=== PATIENT | male | born 1945 | race Caucasian/White ===

== ENCOUNTER 2024-07-30 15:17 | Emergency (ER) | payer MEDICARE, OTHER, SELFPAY ==
[2024-07-30] VITALS (9 sets, daily range): BP systolic 122–153; BP diastolic 53–86; PULSE 73–77; RESP 14–22; TEMP 36.6; O2SAT 96–99; BMI 23.7
--- NOTE | 2024-07-30 15:30 | DI.RAD.S_ITS ---
PROCEDURE: XR CHEST 1V INDICATIONS: chest pain TECHNIQUE: One view of the chest was acquired. COMPARISON: None. FINDINGS: Surgical changes and devices: Left shoulder arthroplasty Lungs and pleura: Low lung volumes. Mildly prominent interstitium. Mediastinum: Mild cardiomegaly Bones and chest wall: Degenerative changes IMPRESSION: Limited single view radiograph with low lung volumes. Mildly prominent interstitium could represent atypical infection versus edema versus background fibrosis. Consider future imaging surveillance to assess for resolution. Dictated by: Min Holloway M.D. on 07/30/2024 at 16:24 Approved by: Min Holloway M.D. on 07/30/2024 at 16:25
--- NOTE | 2024-07-30 15:34 | EKG_ITS ---
[place] [id number] [address] [place] [id number] Test Date: 2024-07-30 Pat Name: Matthew Zavala Department: [facility] Room: Gender: Male Mail Courier: BROOKLYNN : 1945 Requested By: Order Number: [id number] Reading MD: Christo Mccauley Measurements Intervals [place] Rate: 76 P: 73 [place]: 258 QRS: -84 QRSD: 158 T: 91 QT: 440 QTc: 495 Interpretive Statements Atrial-sensed ventricular-paced rhythm with prolonged AV conduction with occasional premature ventricular complexes Electronically Signed On 07-31-2024 20:14:07 PDT by Christo Mccauley
[2024-07-30 15:45] LABS: Add Manual Diff / Slide Review NO; Basophils Absolute Auto 200 /uL (0-100); Basophils Percent Auto 1.5 % (0-2); Eosinophils Absolute Auto 200 /uL (0-450); Eosinophils Percent Auto 1.9 % (2-4); Hematocrit 31.5 % (41-53); Hemoglobin 9.8 g/dL (13.5-17.5); Lymphocytes Absolute Auto 1800 /uL (1100-4500); Lymphocytes Percent Auto 18.3 % (25-40); Mean Corpuscular Hemoglobin 21.9 PG (26-34); Mean Corpuscular Volume 70.7 fL (80-100); Monocytes Absolute Auto 900 /uL (0-900); Monocytes Percent Auto 9.7 % (3-14); Neutrophils Absolute Auto 6700 /uL (1500-7000); Neutrophils Percent Auto 68.6 % (50-75); Platelet Count 245 X10^3/uL (150-400); Red Blood Cell Count 4.46 X10^6/uL (4.5-5.9); Red Cell Distribution Width 18.7 % (11.6-14.8); White Blood Cell Count 9.8 X10^3/uL (4.5-11.0)
[2024-07-30 15:46] LABS: Prothrombin Time 11.6 SECONDS (9.4-12.5)
[2024-07-30 15:48] LABS: PTT Partial Thromboplastin Tim 33 SECONDS (25.1-36.5)
[2024-07-30 15:51] LABS: Alanine Aminotransferase 19 IU/L (<50); Albumin 3.8 g/dL (3.5-5.0); Albumin Globulin Ratio 1.4 (1.0-2.8); Alkaline Phosphatase 92 U/L (38-126); Aspartate Aminotransferase 22 IU/L (17-59); BUN Creatinine Ratio 26.6 (6-22); Bilirubin Total 0.5 mg/dL (0.2-1.3); Blood Urea Nitrogen 29 mg/dL (9-20); Calcium 9.5 mg/dL (8.4-10.2); Carbon Dioxide 24 mmol/L (22-32); Chloride 106 mmol/L (98-107); Creatine Kinase 87 U/L (55-170); Estimated Glomerular Filt Rate > 60 mL/min (>60); Globulin 2.8 g/dL (1.7-4.1); Glucose 130 mg/dL (80-110); HEMOLYSIS < 15 (0-50); Lipase 145 U/L (23-300); Potassium 4.2 mmol/L (3.4-5.1); Sodium 139 mmol/L (137-145); Total Protein 6.6 g/dL (6.3-8.2)
[2024-07-30 16:02] LABS: NT-proBNP (BNP-Adult 18+) 1110 pg/mL (<450); Troponin I 0.013 ng/mL (0.01-0.034)
--- NOTE | 2024-07-30 17:21 | ED.SYNCOPE ---
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 He had no chest pain or palpitations he has been doing very well since his complicated admission. He reports that he was intubated for respiratory failure for pneumonia looks like COPD as well. He reports all the symptoms have completely resolved he was been doing really well since he has been discharged from the hospital. He had no numbness or tingling. He did not pass out he has no headache no nausea or vomiting. No significant lower extremity edema. He was treated for osteomyelitis of his foot and he says that is doing really well as well. He has no other symptoms Related Data Home Medications Medication Instructions Recorded Confirmed apixaban 5 mg tablet 5 mg PO BID 07/30/24 07/30/24 Allergies Allergy/AdvReac Type Severity Reaction Status Date / Time morphine Allergy Hives Verified 07/30/24 15:30 Patient History Social History Smoking Status: Never smoker Smoking Status: Never smoker alcohol intake frequency: holidays/special occasions only Substance Use Type: marijuana Exam Initial Vital Signs Initial Vital Signs: Vital Signs Temperature 98 F 07/30/24 15:27 Pulse Rate 75 07/30/24 15:27 Respiratory Rate 18 07/30/24 15:27 Blood Pressure 138/67 07/30/24 15:27 Pulse Oximetry 96 07/30/24 15:27 Oxygen Delivery Method Room Air 07/30/24 15:27 GENERAL: Alert pleasant 78-year-old male and in no acute distress. HEENT: Head atraumatic,EOMI, pupils reactive, face symmetric, moist mucous membranes CARDIOVASCULAR: Regular rate and rhythm without murmurs, rubs or gallops. RESPIRATORY: Breath sounds equal bilaterally, no wheezes rales or rhonchi. ABDOMEN: Soft, nontender. Normoactive bowel sounds all 4 quadrants. No guarding or rebound. EXTREMITIES: Normal range of motion, no clubbing or edema. Scar noted on right leg but definitely no edema Neurovascularly intact NEUROLOGICAL: Alert and oriented x4.Normal gait and speech. Cranial nerves II through XII grossly intact. SKIN: Warm, dry, no laceration, no petechiae, no rashes or lesions. Course Orders Ordered: ED Orders 07/30/24 15:26 Complete Blood Count AUTO DIFF Stat Comprehensive Metabolic Panel Stat Lipase Stat Magnesium Stat NT-proBNP (BNP-Adult 18+) Stat PTT Partial Thromboplastin Stephen Stat Prothrombin Time INR Stat Troponin & CK Cardiac Panel Stat 07/30/24 15:30 XR chest 1V Stat EKG-12 Lead Stat 07/30/24 17:37 EKG-12 Lead Stat 07/30/24 17:40 Troponin I Stat Vital Signs Vital signs: Vital Signs - 8 hr 07/30/24 15:27 07/30/24 15:40 07/30/24 15:42 Temperature 98 F Pulse Rate 75 73 75 Respiratory Rate 18 21 14 Blood Pressure 138/67 Pulse Oximetry 96 99 98 Oxygen Delivery Method Room Air 07/30/24 15:42 07/30/24 16:00 07/30/24 16:00 Temperature Pulse Rate 75 Respiratory Rate 21 Blood Pressure 136/53 L 150/65 H Pulse Oximetry 99 Oxygen Delivery Method 07/30/24 16:30 07/30/24 16:30 07/30/24 17:00 Temperature Pulse Rate 77 Respiratory Rate 20 Blood Pressure 153/70 H 146/69 H Pulse Oximetry 99 Oxygen Delivery Method 07/30/24 17:00 07/30/24 17:30 07/30/24 17:30 Temperature Pulse Rate 75 75 Respiratory Rate 21 22 Blood Pressure 143/63 H Pulse Oximetry 99 98 Oxygen Delivery Method MDM - Syncope Lab Data 07/30/24 15:26 07/30/24 15:26 Labs: Lab Results 07/30/24 07/30/24 Range/Units 15:26 17:40 WBC 9.8 (4.5-11.0) X10^3/uL RBC 4.46 L (4.5-5.9) X10^6/uL Hgb 9.8 L (13.5-17.5) g/dL Hct 31.5 L (41-53) % MCV 70.7 L (80-100) fL MCH 21.9 L (26-34) PG MCHC 31.0 (30-36) % RDW 18.7 H (11.6-14.8) % Plt Count 245 (150-400) X10^3/uL Neut % (Auto) 68.6 (50-75) % Lymph % (Auto) 18.3 L (25-40) % Logan % (Auto) 9.7 (3-14) % Eos % (Auto) 1.9 L (2-4) % Baso % (Auto) 1.5 (0-2) % Neut # (Auto) 6700 (0993-9598) /uL Lymph # (Auto) 1800 (0408-8697) /uL Logan # (Auto) 900 (0-900) /uL Eos # (Auto) 200 (0-450) /uL Baso # (Auto) 200 H (0-100) /uL PT 11.6 (9.4-12.5) SECONDS INR 1.0 (0.9-1.3) APTT 33 (25.1-36.5) SECONDS Sodium 139 (137-145) mmol/L Potassium 4.2 (3.4-5.1) mmol/L Chloride 106 (98-107) mmol/L Carbon Dioxide 24 (22-32) mmol/L BUN 29 H (9-20) mg/dL Creatinine 1.09 (0.66-1.25) mg/dL Estimated GFR > 60 (>60) mL/min BUN/Creatinine Ratio 26.6 H (6-22) Glucose 130 H (80-110) mg/dL Calcium 9.5 (8.4-10.2) mg/dL Magnesium 2.0 (1.6-2.3) mg/dL Total Bilirubin 0.5 (0.2-1.3) mg/dL AST 22 (17-59) IU/L ALT 19 (<50) IU/L Alkaline Phosphatase 92 (38-126) U/L Total Creatine Kinase 87 (55-170) U/L Troponin I 0.013 0.016 (0.01-0.034) ng/mL NT-Pro-B Natriuret Pep 1110 H (<450) pg/mL Total Protein 6.6 (6.3-8.2) g/dL Albumin 3.8 (3.5-5.0) g/dL Globulin 2.8 (1.7-4.1) g/dL Albumin/Globulin Ratio 1.4 (1.0-2.8) Lipase 145 (23-300) U/L Imaging Data Chest x-ray: Radiologist's Impression: PROCEDURE: XR CHEST 1V INDICATIONS: chest pain TECHNIQUE: One view of the chest was acquired. COMPARISON: None. FINDINGS: Surgical changes and devices: Left shoulder arthroplasty Lungs and pleura: Low lung volumes. Mildly prominent interstitium. Mediastinum: Mild cardiomegaly Bones and chest wall: Degenerative changes IMPRESSION: Limited single view radiograph with low lung volumes. Mildly prominent interstitium could represent atypical infection versus edema versus background fibrosis. Consider future imaging surveillance to assess for resolution. Dictated by: Min Holloway M.D. on 07/30/2024 at 16:24 ECG Data Attestation: I personally reviewed and interpreted this ECG as follows: Prior ECG tracings: not available for review Interpretation: Paced rhythm rate 76 [place] interval 258 QRS 158 QTC 495 no Sgarbossa criteria EKG 2. Persistently paced rhythm rate 75 no ischemia MDM Narrative Medical decision making narrative: MDM CC: Diaphoresis Complicating co-morbidities: Renal transplant secondary to COPD CHF diabetes osteomyelitis pacemaker Medical records reviewed: [facility] records have been reviewed Differential considered: Pacemaker abnormality, cardiac acute coronary syndrome TIA vasovagal electrolyte abnormality Exam documented above, pertinent findings include: No significant lower extremity edema neurologically intact appears well no respiratory distress Lab Test results independently reviewed as above. Pertinent findings: BNP 1100 troponin negative x2 CBC: WBC 9.8 hemoglobin 9.8 hematocrit 31.5 platelets 245 INR 1.0 PTT 33 CMP: Sodium 139 potassium 4.2 chloride 106 carbon dioxide 24 BUN 29 creatinine 1.0 Independently reviewed EKG as above paced rhythm x2 Imaging studies independently reviewed: No acute cardiopulmonary process Consultations: None Treatments: None Re-evaluations: Pacemaker was interrogated by [employer] does not appear that he has had any significant ativity, last activity was ventricular rhythm nonsustained on 06/27/2024 Discussion: Patient is 78-year-old male with very complicated medical history presenting today with a diaphoretic episode and near syncopal episode. He did not pass out he has no symptoms. He is 2- troponins. Pacemaker has been evaluated and no significant activity noted. Blood work is overall reassuring. He has no focal deficits no headache. Vitals have been stable. No evidence of infection or signs suggestive infection. At this time I recommend he follow up with primary care. Discharge Plan Departure Patient Disposition: Home Clinical Impression: Near syncope Instructions: DI for Vertigo Activity Restrictions/Additional Instructions: *You have been diagnosed with near syncope *What to do: At this time blood work is overall reassuring. Your pacemaker seem to check out. Please call and follow-up with all of your regular provider *Continue to take medications as directed *Follow up with your primary care provider in 2-3 days or call [phone] *Return to ER if you should have syncopal episode recurrent episodes chest pain palpitations or any new, worsening or concerning symptoms Prescriptions: No Action apixaban 5 mg Tablet 5 mg PO BID Referrals: Yovani Ledesma MD [Primary Care Provider] - Stand Alone Forms: Patient Portal/API
--- NOTE | 2024-07-30 17:37 | EKG_ITS ---
[address] [address] Test Date: 2024-07-30 Pat Name: Matthew Zavala Department: Located [facility] Room: Gender: Male Risk Intern: DAVID : 1945 Requested By: Order Number: [id number] Reading MD: Christo Mccauley Measurements Intervals [place] Rate: 75 P: 64 [place]: 236 QRS: -89 QRSD: 176 T: 84 QT: 460 QTc: 513 Interpretive Statements Atrial-sensed ventricular-paced rhythm with prolonged AV conduction with occasional sinus complexes Electronically Signed On 07-31-2024 20:14:12 PDT by Christo Mccauley
[2024-07-30 18:19] LABS: Troponin I 0.016 ng/mL (0.01-0.034)
== END 2024-07-30 18:55 | disposition home or self-care (01) ==
PROVIDERS: Emergency Provider Emergency Medicine; PCP Family Medicine
DX: R55 Syncope and collapse (principal); R07.9 Chest pain, unspecified; Z79.01 Long term (current) use of anticoagulants; Z95.0 Presence of cardiac pacemaker
CPT/HCPCS: 36415; 71045; 80053; 82550; 83690; 83735; 83880; 84484; 85025; 85610; 85730; 93005; 99284